=== PATIENT | female | born 1940 | race Caucasian/White ===

== ENCOUNTER 2021-12-23 13:35 | Inpatient (IN) ==
[2021-12-23] MEDS ORDERED: Iodixanol (CONTRAST) 320 MG/ML 100 ML SDV IV ONE (13:46)
[2021-12-23 13:57] LABS: ABS Basophils 0.1 10^3/ul (0-0.2); ABS Eosinophils 0.1 10^3/ul (0-0.6); ABS Lymphocytes 1.7 10^3/ul (1.0-4.8); ABS Monocytes 0.7 10^3/ul (0-0.8); ABS Neutrophils 5.8 10^3/ul (1.5-7.7); Eosinophil % 0.9 %; Hematocrit 40 % (35-47); Hemoglobin 13.2 g/dL (12.0-16.0); Lymphocyte % 20.3 %; Mean Corpuscular HGB Conc 33 g/dL (31-36); Mean Corpuscular Hemoglobin 30 pg (27-31); Mean Corpuscular Volume 92 fL (80-97); Mean Platelet Volume 7.7 fL (7.4-10.4); Platelet Count 262 10^3/uL (150-450); Red Blood Count 4.34 10^6 /uL (3.70-4.87); Red Cell Distribution Width 13 % (10-15); White Blood Count 8.4 10^3/uL (3.5-10.8)
[2021-12-23] MEDS ORDERED: levETIRAcetam 1000MG IVPREMIX 1,000 MG/100 ML BAG IVPB ONE (14:03)
[2021-12-23 14:06] LABS: Activated Partial Thrombo Time 31.4 seconds (26.0-38.0); INR 0.97 (0.89-1.11)
[2021-12-23 14:07] LABS: Albumin 4.4 g/dL (3.2-5.2); Calcium 9.6 mg/dL (8.6-10.3); Potassium 3.9 mmol/L (3.5-5.0); Total Bilirubin 0.6 mg/dL (0.2-1.0)
[2021-12-23 14:13] LABS: Albumin/Globulin Ratio 1.3 (1-3); Globulin 3.5 g/dL (2-4); HDL Cholesterol 63.9 mg/dL; Total Protein 7.9 g/dL (6.4-8.9); eGFR CKD-EPI 52.4 (>60)
[2021-12-23] MEDS ORDERED: niCARdipine 0.1MG/ML IVPREMIX 20 MG/200 ML BAG IV SCH (15:00)
[2021-12-23] MEDS: levETIRAcetam 500 MG IVPREMIX 500 MG/100 ML BAG IV SCH (21:11)
[2021-12-24] MEDS ORDERED: Rocuronium 50 mg VIAL 10 mg/ml 5 ml VIAL (50 mg) ONE ×2 (08:00→09:06)
[2021-12-24] MEDS ORDERED: Lidocaine 2% PF 5 ML VIAL ONE ×2 (08:00→09:06)
[2021-12-24] MEDS ORDERED: Phenylephrine IV 10 MG/ML 1 ml VIAL ONE ×2 (08:00→09:52)
[2021-12-24] MEDS ORDERED: Propofol 10 MG/ML 20 ML BTL ONE ×2 (08:00→09:06)
[2021-12-24] MEDS ORDERED: ceFAZolin 2 GM PREMIX 2 GM/50 ML BAG ONE (08:03)
[2021-12-24] MEDS ORDERED: Thrombin 5,000 UNITS 1 APPLIC KIT - topical use - TOPICAL ONE (08:27)
[2021-12-24] MEDS ORDERED: Mannitol 25% (12.5 GM) 50 ML 12.5 GM/50 ML VIAL ONE (08:28)
[2021-12-24] MEDS ORDERED: Gelfoam Sponge SIZE 100 SPONGE ONE (08:28)
[2021-12-24] MEDS ORDERED: Lidocaine 2% w EPI 1:100,000 20 ML MDV VIAL ONE (08:28)
[2021-12-24] MEDS ORDERED: fentaNYL 250 mcg/5 ml 50 MCG/ML 5 ml VIAL (250 MCG) ONE (09:06)
[2021-12-24 09:30] LABS: Calcium 9.1 mg/dL (8.6-10.3); Potassium 4.1 mmol/L (3.5-5.0); eGFR CKD-EPI 61.4 (>60)
[2021-12-24] MEDS ORDERED: Phenylephrine 40 mcg/mL 10mL (400mcg) SYRINGE ONE ×2 (09:50→12:27)
[2021-12-24] MEDS ORDERED: Ondansetron 4 mg VIAL 2 MG/ML 2 ml VIAL ONE (09:58)
[2021-12-24] MEDS ORDERED: Dexamethasone IV 4 MG/ML VIAL 1 ml VIAL ONE (09:58)
[2021-12-24] MEDS ORDERED: Sterile Water for Inj 10 ML ONE (12:30)
[2021-12-24] MEDS ORDERED: hydrALAZINE 20 mg/ml 1 ML Vial IV IV SLOW PU PRN (12:46)
[2021-12-24] MEDS: Lactated Ringers 1000 ml BAG 1,000 ML IV SCH (13:04)
[2021-12-24 13:12] LABS: ABS Lymphocytes 0.6 10^3/ul (1.0-4.8); ABS Monocytes 0.2 10^3/ul (0-0.8); ABS Neutrophils 8.3 10^3/ul (1.5-7.7); Eosinophil % 0.2 %; Hematocrit 36 % (35-47); Hemoglobin 12.1 g/dL (12.0-16.0); Lymphocyte % 6.8 %; Mean Corpuscular HGB Conc 34 g/dL (31-36); Mean Corpuscular Hemoglobin 31 pg (27-31); Mean Corpuscular Volume 91 fL (80-97); Mean Platelet Volume 7.6 fL (7.4-10.4); Platelet Count 226 10^3/uL (150-450); Red Blood Count 3.96 10^6 /uL (3.70-4.87); Red Cell Distribution Width 14 % (10-15); White Blood Count 9.1 10^3/uL (3.5-10.8)
[2021-12-24 13:16] LABS: INR 1.03 (0.89-1.11)
[2021-12-24] MEDS: levETIRAcetam 500 MG IVPREMIX 500 MG/100 ML BAG IV SCH ×2 (13:26→21:18)
[2021-12-24 13:58] LABS: Albumin 3.7 g/dL (3.2-5.2); Albumin/Globulin Ratio 1.5 (1-3); Globulin 2.4 g/dL (2-4); Potassium 4.3 mmol/L (3.5-5.0); Total Bilirubin 0.5 mg/dL (0.2-1.0); Total Protein 6.1 g/dL (6.4-8.9); eGFR CKD-EPI 51.9 (>60)
[2021-12-24] MEDS: HYDROcodone/ACETAMIN 5/325 mg TAB PO PRN ×2 (14:49→23:19)
[2021-12-24 15:29] LABS: Magnesium 1.8 mg/dL (1.9-2.7)
[2021-12-24] MEDS: Morphine 2 MG/ML SYRINGE IV PRN ×2 (16:33→23:20)
[2021-12-24] MEDS ORDERED: Magnesium Sulfate 2 gm BAG 2 GM/50 ML BAG IVPB ONE (17:20)
[2021-12-24] MEDS ORDERED: Calcium Carb (TUMS) 500 mg CHEW TAB PO SCH (21:00)
[2021-12-24] MEDS ORDERED: Calcium Carb (TUMS) 500 mg CHEW TAB PO PRN (21:17)
[2021-12-24] MEDS ORDERED: Calcium Carb (TUMS) 500 mg CHEW TAB PO ONE (23:11)
[2021-12-25] MEDS: Lactated Ringers 1000 ml BAG 1,000 ML IV SCH (01:56)
[2021-12-25 06:15] LABS: ABS Lymphocytes 0.6 10^3/ul (1.0-4.8); ABS Monocytes 0.8 10^3/ul (0-0.8); ABS Neutrophils 8.3 10^3/ul (1.5-7.7); Hematocrit 36 % (35-47); Hemoglobin 11.8 g/dL (12.0-16.0); Lymphocyte % 6.5 %; Mean Corpuscular HGB Conc 33 g/dL (31-36); Mean Corpuscular Hemoglobin 30 pg (27-31); Mean Corpuscular Volume 91 fL (80-97); Mean Platelet Volume 7.6 fL (7.4-10.4); Platelet Count 239 10^3/uL (150-450); Red Blood Count 3.92 10^6 /uL (3.70-4.87); Red Cell Distribution Width 14 % (10-15); White Blood Count 9.8 10^3/uL (3.5-10.8)
[2021-12-25 06:41] LABS: Calcium 8.6 mg/dL (8.6-10.3); Magnesium 2.1 mg/dL (1.9-2.7); Potassium 4.4 mmol/L (3.5-5.0)
[2021-12-26] MEDS ORDERED: Calcium Carb (TUMS) 500 mg CHEW TAB PO ONE (00:13)
[2021-12-26] MEDS ORDERED: LACTATED RINGERS 1000 ML BAG IV SCH (07:00)
[2021-12-26] MEDS: Magnesium Hydroxide LIQ 30 ML UDC PO PRN ×2 (11:57→20:17)
[2021-12-26] MEDS: Senna TAB 8.6 mg TAB PO PRN ×2 (11:58→20:18)
[2021-12-26] MEDS ORDERED: Calcium Carb (TUMS) 500 mg CHEW TAB PO PRN (23:16)
[2021-12-27] MEDS: Senna TAB 8.6 mg TAB PO PRN (09:33)
[2021-12-27] MEDS: Magnesium Hydroxide LIQ 30 ML UDC PO PRN (09:37)
[2021-12-27 15:34] VITALS: BP 119/55
== END 2021-12-27 16:45 | disposition home or self-care (01) | DRG 20 ==
LOC: EDHOLD 13:35 → ED 13:35 → MEDTELE 22:43 → ICU 12-24 12:22 → SUATTDRO 12-24 17:05 → SSU 12-25 14:49
PROVIDERS: ADMIT Internal Medicine; ATTEND Internal Medicine